=== PATIENT | female | born 1970 | race Hispanic/Latino ===

== ENCOUNTER 2019-09-06 10:26 | Inpatient (IN) | payer BC ==
[~2019-09-06] VITALS: Ht 160 cm; Wt 72.0 kg
[~2019-09-06 10:26] MED LIST: AUGMENTIN875TAB PO; BACTRIM DS1 TAB OR; CIPRO XR500 MG PO; DENIES CURRENT MEDS; FLAGYL500 MG PO; HYDROCO/APAP1 TA9 PO; LORTAB 7.57.5 MG PO; LORTAB5 OR; LORTAB5 PO; NAPROSYN500 MG PO; NEXIUM40 M1 PO; NO HOME MEDS; STOMACH MEDICATION; TORADOL OR; TYLOPHEN500 MG PO; VENLAFAXINE HCL75 MG PO; [UNRECOGNIZED DRUG - SUPPLY] XX
--- NOTE | 2019-09-06 10:46 | NUR ---
To room 16 via wc in stable condition.
--- NOTE | 2019-09-06 11:40 | NUR ---
PT RESTING ON STRETCHER; PT ADVISED OF BUSY ED AND CONTINUED WAIT TIME; VSS; CALL LIGHT WITHIN REACH; WILL CONTINUE TO MONITOR
[2019-09-06 11:55] LABS: HEMATOCRIT 43.8 % (37.0-47.0); HEMOGLOBIN 15.4 g/dl (12.0-16.0); IMMATURE GRANULOCYTES 0.4 % (0.0-5.0); MEAN CELL VOLUME 88.3 fL CALC (80.0-100.0); MEAN CORPUSCULAR HGB CONC 35.2 g/dL CAL (32.0-36.0); NEUT# 4.34 thou/uL (2.00-7.15); RED BLOOD COUNT 4.96 mill/uL (4.20-5.60); RED CELL DISTRI WIDTH 11.8 % (11.5-15.5)
[2019-09-06 12:04] LABS: ALBUMIN 4.5 g/dL (3.2-5.0); ALKALINE PHOSPHATASE 86 u/l (38-126); BILIRUBIN, TOTAL 0.5 mg/dL (0.0-1.4); BUN 10 mg/dL (7-17); BUN/CREATININE RATIO 30 (12-20 (CALC)); CARBON DIOXIDE 27 mmol/l (22-30); CHLORIDE 92 mmol/l (95-108); CREATININE 0.3 mg/dL (0.5-1.0); GFR > 60 ML/MIN (>=60 (CALC)); GFR FOR AFR.AMER. > 60 ML/MIN (>=60 (CALC)); POTASSIUM 3.6 mmol/l (3.5-5.1)
[2019-09-06 12:12] LABS: AMYLASE 34 u/l (30-110); LIPASE 66 u/l (23-300)
[2019-09-06 12:19] LABS: ANION GAP 17 (6-22 (CALC)); SGOT/AST 70 u/l (14-36); SODIUM 132 mmol/l (137-146)
[2019-09-06 12:26] LABS: MYOGLOBIN 18 ng/mL (0 - 62)
--- NOTE | 2019-09-06 12:40 | NUR ---
PT RESTING ON STRETCHER; PT C/O NAUSEA; WILL MEDICATE WHEN AVAILABLE; MONITORING DEVICES IN PLACE; VSS; WILL CONTINUE TO MONITOR
[2019-09-06 13:08] LABS: ACT PARTIAL THROMBO TIME 28.7 SECONDS (20.0-32.5); D-DIMER 0.17 mg/L (0.19-0.60); PROTHROMBIN TIME 10.3 SECONDS (9.0-12.5)
--- NOTE | 2019-09-06 13:33 | NUR ---
PT AMB TO BR WITH STEADY GAIT FOR UA
[2019-09-06 14:26] LABS: URINE BILIRUBIN - DIPSTICK NEGATIVE (NEGATIVE); URINE BLOOD DIPSTICK TRACE-INTACT (NEGATIVE); URINE COLOR YELLOW; URINE GLUCOSE - DIPSTICK 500 mg/dL (NEGATIVE); URINE KETONE >=80 mg/dL (NEGATIVE); URINE LEUK ESTERASE NEGATIVE (NEGATIVE); URINE NITRITE - DIPSTICK NEGATIVE (Negative); URINE PH 6.5 (4.5-8.0); URINE PROTEIN - DIPSTICK 100 mg/dL (NEG-TRACE); URINE UROBILINOGEN - DIPSTICK 0.2 E.U./dL (0.2)
--- NOTE | 2019-09-06 14:33 | NUR ---
PT IS FEELING MUCH BETTER AFTER MEDICATION. AND IS RESTING COMFORTABLY
[2019-09-06 14:37] LABS: URINE EPITHELIAL CELLS FEW EPI/hpf (0-FEW); URINE MUCUS FEW hpf (NONE-FEW)
[2019-09-06 15:45] VITALS: BP 138/83
--- NOTE | 2019-09-06 15:46 | NUR ---
PT IS AWARE OF BEING ADMITTED AND IS WAITING FOR A BED. PT IS IN NO DITRESS
--- NOTE | 2019-09-06 16:30 | NUR ---
Admission Note Report Given to: MALINDA Transported by: Wheelchair X Stretcher Transported with: X Nurse Transporter X Patent IV O2 X Photographer Finish Location: ICU X MS2
--- NOTE | 2019-09-06 16:30 | NUR ---
PT ARRIVED TO [facility] ROOM 289 IN STABLE CONDITION VIA WHEELCHAIR ACCOMPAINED BY MICKEY CRAWFORD. PT AMBULATED FROM WHEEL CHAIR TO BED WITH STEADY GAIT. PT IS A/O X3 AND ESTONIAN SPEAKING.ASSESSMENT AND VITALS COMPLETED AT THIS TIME. BP 138/83, HR 106, O2 96% ON ROOM AIR. RESPIRATIONS ARE EVEN AND UNLABORED. LUNG SOUNDS ARE DIMINISHED . HEART RHYTHM IS NORMAL, TELE IN PLACE. BOWEL SOUNDS ARE HYPOACTIVE WITH TENDERNESS. RADIAL AND PEDAL PULSES ARE STRONG WITH NORMAL CAPILLARY REFILL. NO EDEMA PRESENT AT THIS TIME. SKIN IS WARM AND DRY WITH NO SKIN BREAKS. IV FLUSHED, SITE APPEARS HEALTHY AND PATENT. IV FLUIDS STARTED AT THIS TIME, RUNNING AT 100ML ORDERED. PT COMPLAINS OF SLIGHT BACK PAIN, REPOSITIONED FOR COMFORT. MICKEY SOSA TO TRANSLATE.FALL RISK BRACLET APPLIED. ALL SAFTEY PRECAUTIONS IN PLACE, ORIENTED PT TO ROOM AND CALL LIGHT SYSTEM . WILL CONTINUE TO MONITOR
--- NOTE | 2019-09-06 19:00 | NUR ---
RECEIVED REPORT FROM NURSE PETTY PATIENT APPEARS TO BE SLEEPING WITH EYES CLOSED, BREATHING EVEN AND UNLABORED CALL LIGHT AT REACH.
[2019-09-06 19:30] VITALS: BP 101/63
--- NOTE | 2019-09-06 20:30 | NUR ---
PATIENT PARAG VARELA, ABL TO MAKE NEEDS KNONW, SINHALA SPEAKING BUT ABLE TO UNDERSTAND LITTLE BULGARIAN, REMAINS ON TELE, DENIES PAIN OR DISCOMFORTS, DENIES N/V, BREATHING SHALLOW, UNLABORED, LUNG SOUNDS DIMINISHED, CALL LIGHT AT REACH.
[2019-09-07] VITALS (7 sets, daily range): BP systolic 109–168; BP diastolic 58–83
--- NOTE | 2019-09-07 00:41 | NUR ---
TEMP 101.5 PRN TYLENOL GIVEN AND COLD PACKS PROVIDED WILL RECHECK TEMP
--- NOTE | 2019-09-07 04:26 | NUR ---
PATIENT RESTING IN BED WITH EYES CLOSED, EASY TO AROUSED, DENIES PAIN OR DISCOMFORTS, AFEBRILE AT THIS TIME, NO DISCOMFORTS NOTED, NOT IN DISTRESS CALL LIGHT AT REACH.
[2019-09-07 04:30] LABS: CHOLESTEROL HDL RATIO 3.7 (<4.4 (CALC)); MAGNESIUM 1.7 mg/dL (1.6-2.3)
--- NOTE | 2019-09-07 09:30 | NUR ---
RECIEVED REPORT FROM MICKEY MEDINA. PT RESTING IN SEMI FOLWERS POSITION UPON ENTERING ROOM. ASSESSMENT AND VITALS COMPLETED AT THIS TIME. PT IS A/O X3 AND AMBULATORY. PT IS MOSTLY SUDANESE SPEAKING, MICKEY PALENCIA ASSISTED WITH TRANSLATION OVER PHONE. BP 144/79, HR 107, O2 91% ON ROOM AIR. RESPIRATIONS ARE EVEN AND UNLABORED WITH NO SIGNS OF DISTRESS. LUNG SOUNDS ARE DIMINISHED. PT PRESENTS WITH NON PRODUCTIVE COUGH. HEART RHYTHM IS NORMAL WITH TELE IN PLACE. BOWEL SOUNDS ARE ACTIVE IN ALL QUADRANTS, LAST REPORTED BM 09/05/19. RADIAL AND PEDAL PULSES ARE STRONG WITH NORMAL CAPILLARY REFILL. PT TEMPERATURE WAS 100.8, TYLENOL TO BE ADMINISTERED WITH MORNING MEDICTAIONS PT DENIES ANY PAIN OR DISCOMFORTS AT THIS TIME. ALL SAFTEY PRECAUTIONS IN PLACE WITH CALL LIGHT IN REACH. WILL CONTINUE TO MONTIOR.
--- NOTE | 2019-09-07 09:52 | NUR ---
PT PRESENTS WITH A FEVER OF 101.5, TYLENOL ADMINISTERED AT THIS TIME. ALL SAFTEY PERCAUTIONS IN PLACE WITH CALL LIGHT IN REACH. WILL CONTINUE TO MONITOR
--- NOTE | 2019-09-07 12:00 | NUR ---
PT RESTING IN SEMI FOWLERS POSITION WATCHING TV. BREATHING IS EVEN AND UNLABORED. PT ASKED FOR CHARGERE FOR HER PHONE, OgorodITTER INFORMED PT THAT WE DID NOT HAVE A GEMOLOGIST AVALIABLE. PT VERBALIZED UNDERSTANDING. PT DENIES ANY PAIN OR DISCOMFORTS AT THIS TIME. ALL SAFETY PRECAUTIONS IN PLACE WITH CALL LIGHT IN REACH. WILL CONTINUE TO MONITOR
--- NOTE | 2019-09-07 14:30 | NUR ---
PT TRANSPORTED TO [facility] IN STABLE CONDITION VIA WHEELCHAIR ACCOMPANIED BY EDWARD DESHPANDE.
--- NOTE | 2019-09-07 15:00 | NUR ---
PT ARRIVED BACK TO [facility] FLOOR VIA WHEEL CHAIR IN STABLE CONDITION. RESPIRATIONS ARE EVEN AND UNLABORED WITH NO SIGNS OF DISTRESS. ALL SAFTEY PRECAUTIONS IN PLACE WITH CALL LIGHT IN REACH.WILL CONTINUE TO MONITOR
--- NOTE | 2019-09-07 15:51 | NUR ---
REPORTED TEMP OF 102.1, TYLENOL TO BE ADMINISTERED TO ASSIST. RESPIRATIONS ARE EVEN AND UNLABORED. PT DENIES ANY PAIN OR DISCOMFORTS AT THIS TIME.ALL SAFTEY PRECAUTIONS IN PLACE WITH CALL LIGHT IN REACH. WILL CONTINUE TO MONITOR
--- NOTE | 2019-09-07 15:55 | NUR ---
REPORTED TEMP 102.5. TYLENOL GIVEN AT THIS TIME. RESPIRATIONS ARE EVEN AND UNLABORED. PT DENIES ANY PAIN OR DISCOMFORTS. ALL SAFTEY PRECAUTIONS IN PLACE WITH CALL LIGHT IN REACH. WILL CONTINUE TO MONITOR.
--- NOTE | 2019-09-07 21:35 | NUR ---
UPON ENTERING ROOM PT COMING OUT OF BATHROOM, AMBULATORY TO BED W/ IV PUMP, GAIT STEADY AND BALANCED. PHYSICAL ASSESMENT COMPLETE. PLAN OF CARE REVIEWED. PT DENIES QUESTIONS AND VERBALIZES UNDERSTANDING. PT PROVIDED W/ AYDINO PER HER REQUEST. PT DENIES FURTHER NEEDS @ THIS TIME. ITEMS WITHIN REACH. CALL TIM WITHIN REACH, AGREES TO CALL PRN. BED LOCKED IN LOW POSITION W/ BEDRAILS UPX2.
--- NOTE | 2019-09-08 01:30 | NUR ---
PT APPEARS TO BE SLEEPING COMFORTABLY, NO APPARENT DISTRESS, RESPIRATIONS REGULAR AND UNLABORED, ITEMS REMAIN WITHIN REACH, CALL TIM REMAINS WITIHN REACH, BED REMAINS LOCKED IN LOW POSITION W/ BEDRAILS UP X2.
--- NOTE | 2019-09-08 03:58 | NUR ---
COVID-19 SWAB RESULTS RECEIVED. RESULTS ARE POSITIVE. DR JONES AND NURSING FORM BUILDER HELPER MADE AWARE.
[2019-09-08 04:12] VITALS: BP 139/73
--- NOTE | 2019-09-08 05:30 | NUR ---
AM LABS DRAWN, PT C/O NAUSEA, PROVIDED GINGERALE AND SALTINES PER HER REQUEST. PT ADVISED OF POSITIVE COVID-19 RESULTS. PT VERBALIZES UNDERSTANDING AND DENIES QUESTIONS. ENCOURAGED PT TO AND ALLOWED PT TIME TO EXPRESS ANY CONCERNS.
[2019-09-08 06:13] LABS: HEMATOCRIT 42.8 % (37.0-47.0); HEMOGLOBIN 14.9 g/dl (12.0-16.0); IMMATURE GRANULOCYTES 0.3 % (0.0-5.0); MEAN CELL VOLUME 87.9 fL CALC (80.0-100.0); MEAN CORPUSCULAR HGB 30.6 pG CALC (26.0-32.0); MEAN CORPUSCULAR HGB CONC 34.8 g/dL CAL (32.0-36.0); NEUT# 1.87 thou/uL (2.00-7.15); RED BLOOD COUNT 4.87 mill/uL (4.20-5.60); RED CELL DISTRI WIDTH 11.7 % (11.5-15.5)
[2019-09-08 06:30] LABS: ALBUMIN 3.6 g/dL (3.2-5.0); ALKALINE PHOSPHATASE 76 u/l (38-126); ANION GAP 13 (6-22 (CALC)); BILIRUBIN, TOTAL 0.4 mg/dL (0.0-1.4); BUN 5 mg/dL (7-17); BUN/CREATININE RATIO 16 (12-20 (CALC)); CARBON DIOXIDE 25 mmol/l (22-30); CHLORIDE 98 mmol/l (95-108); CREATININE 0.3 mg/dL (0.5-1.0); GFR > 60 ML/MIN (>=60 (CALC)); GFR FOR AFR.AMER. > 60 ML/MIN (>=60 (CALC)); POTASSIUM 2.9 mmol/l (3.5-5.1); SGOT/AST 75 u/l (14-36); SODIUM 132 mmol/l (137-146); TOTAL PROTEIN 6.7 g/dL (6.3-8.2)
[2019-09-08 06:35] LABS: C-REACTIVE PROTEIN > 9.0 mg/dL (0-0.9)
--- NOTE | 2019-09-08 07:11 | NUR ---
K LEVEL OF 2.9. DR JONES NOTIDED
--- NOTE | 2019-09-08 07:14 | NUR ---
K REPLACEMENT ORDERS REC. ORDERS FAXED TO PHARMACY
--- NOTE | 2019-09-08 07:33 | NUR ---
PT SITTING IN BED. A&O X3. NO DISTRESS NOTED. PT DENIES ANY SOB OR EXCERTIONAL SOB. NO OTHER NEEDS AT THIS TIME. EXPLAINED TO PT THAT K LEVEL WAS BELOW THE NORMAL RANGE AND THAT REPLACEMENT WOULD BE NEEDED. PT VERBALIZED UNDERSTANDING. ASSESSMENT COMPLETED. DISCUSSED POC. CALL LIGHT IN REACH. CONTINUE TO MONITOR. ISOLATION PRECAUTIONS IN PLACE.
[2019-09-08 07:57] VITALS: BP 111/60
[2019-09-08 11:59] VITALS: BP 116/67
--- NOTE | 2019-09-08 15:18 | NUR ---
TEMP 101.1. TYLENOL GIVEN, BLANKETS REMOVED, COOL WASH CLOTHS GIVEN. WILL REASSESS
[2019-09-08 16:02] VITALS: BP 152/82
[2019-09-08 19:55] VITALS: BP 149/81
--- NOTE | 2019-09-08 21:25 | NUR ---
UPON ENTERING ROOM PT FOUND TO BE SITTING UP AT BEDSIDE. RESPIRATIONS REGULAR AND UNLABORED, PT APPEARS COMFORTABLE AND IN NO DISTRESS. PHYSICAL ASSESMENT COMPLETE. NEW IV STARTED TO RFA. PLAN OF CARE REVIEWED, PT VERBALIZES UNDERSTANDING AND DENIES QUESTIONS. PT PROVIDED W/ HS DIABETIC SNACK, SCHEDULED MEDS ADMINISTERED, SEE MAR. PRN TYLENOL ADMINISTERED FOR FEVER. SEE MAR. PT DENIES FURTHER NEEDS @ THIS TIME. ITEMS WITHIN REACH. BED LOCKED IN LOW POSITION W/ BED RAILS UP X2. CALL TIM WITHIN REACH, AGREES TO CALL PRN.
[2019-09-09] VITALS (7 sets, daily range): BP systolic 112–155; BP diastolic 66–89
--- NOTE | 2019-09-09 01:32 | NUR ---
PT RESTING IN BED, APPEARS TO BE SLEEPING, APPEARS COMFORTABLE AND IN NO DISTRESS, RESPIRATIONS REGULAR AND UNLABORED. CALL TIM REMAINS WITHIN REACH, BED REMAINS LOCKED IN LOW POSITION W/ BEDRAILS UPX2.
--- NOTE | 2019-09-09 05:31 | NUR ---
MEDICATED W/ APAP 650MG FOR FEVER OF 101. SEE MAR. PT DENIES FURTHER NEEDS @ THIS TIME. CALL TIM REMAINS WITHIN REACH, AGREES TO CALL PRN.
--- NOTE | 2019-09-09 07:03 | NUR ---
PT SITTING ON THE SIDE OF THE BED. A&O X3. NO DISTRESS NOTED. PT REPORTS TO BE FEELING BETTER THIS MORNING. DENIES SOB, CURRENTLY AFEBRILE AT THIS TIME. ASSESSMENT COMPLETED. ISOLATION PRECAUTIONS IN PLACE. ASSESSMENT COMPLETED. DISCUSSED POC. CALL LIGHT IN REACH. CONTINUE TO MONITOR.
[2019-09-09 07:47] LABS: ALBUMIN 3.3 g/dL (3.2-5.0); ALKALINE PHOSPHATASE 70 u/l (38-126); ANION GAP 12 (6-22 (CALC)); BILIRUBIN, TOTAL 0.4 mg/dL (0.0-1.4); BUN 5 mg/dL (7-17); BUN/CREATININE RATIO 16 (12-20 (CALC)); CARBON DIOXIDE 23 mmol/l (22-30); CHLORIDE 100 mmol/l (95-108); CREATININE 0.3 mg/dL (0.5-1.0); GFR > 60 ML/MIN (>=60 (CALC)); GFR FOR AFR.AMER. > 60 ML/MIN (>=60 (CALC)); MAGNESIUM 1.7 mg/dL (1.6-2.3); POTASSIUM 2.8 mmol/l (3.5-5.1); SGOT/AST 69 u/l (14-36); SODIUM 132 mmol/l (137-146); TOTAL PROTEIN 6.3 g/dL (6.3-8.2)
--- NOTE | 2019-09-09 11:33 | NUR ---
PER ALFONSO VASQUEZ AND ARE NOT COMPATIBLE.
--- NOTE | 2019-09-09 13:12 | NUR ---
PER PEDRO IN PHARMACY, GIVE ZITHRO NOW. ROCEPHIN DUE TIME TO BE ADJUSTED
--- NOTE | 2019-09-09 16:57 | NUR ---
PT SITTING IN CHAIR. NO DISTRESS OR NEEDS AT THIS TIME. CALL LIGHT IN REACH. CONTINUE TO MONITOR.
--- NOTE | 2019-09-09 21:30 | NUR ---
UPON ENTERING ROOM PT FOUND TO BE SITTING UP IN CHAIR. RESPIRATIONS REGULAR AND UNLABORED, PT APPEARS COMFORTABLE AND IN NO DISTRESS. PHYSICAL ASSESMENT COMPLETE. PLAN OF CARE REVIEWED, PT VERBALIZES UNDERSTANDING AND DENIES QUESTIONS. PT PROVIDED W/ HS DIABETIC SNACK, SCHEDULED MEDS ADMINISTERED, SEE MAR. PRN TYLENOL ADMINISTERED FOR FEVER. SEE MAR. PT DENIES FURTHER NEEDS @ THIS TIME. ITEMS WITHIN REACH. BED LOCKED IN LOW POSITION W/ BED RAILS UP X2. CALL TIM WITHIN REACH, AGREES TO CALL PRN.
--- NOTE | 2019-09-10 02:08 | NUR ---
PT RESTING IN BED, APPEARS TO BE SLEEPING, APPEARS COMFORTABLE AND IN NO DISTRESS, RESPIRATIONS REGULAR AND UNLABORED. ITEMS REMAIN WITHIN REACH, CALL TIM REMAINS WITHIN REACH, BED REMAINS LOCKED IN LOW POSITION W/ BEDRAILS UPX2.
[2019-09-10 04:10] VITALS: BP 124/77
--- NOTE | 2019-09-10 05:40 | NUR ---
AM LABS DRAWN.
[2019-09-10 06:16] LABS: HEMATOCRIT 42.7 % (37.0-47.0); HEMOGLOBIN 14.6 g/dl (12.0-16.0); IMMATURE GRANULOCYTES 0.3 % (0.0-5.0); MEAN CELL VOLUME 88.6 fL CALC (80.0-100.0); MEAN CORPUSCULAR HGB 30.3 pG CALC (26.0-32.0); MEAN CORPUSCULAR HGB CONC 34.2 g/dL CAL (32.0-36.0); NEUT# 4.27 thou/uL (2.00-7.15); RED BLOOD COUNT 4.82 mill/uL (4.20-5.60); RED CELL DISTRI WIDTH 11.8 % (11.5-15.5)
[2019-09-10 06:40] LABS: ALBUMIN 3.5 g/dL (3.2-5.0); ALKALINE PHOSPHATASE 73 u/l (38-126); BILIRUBIN, TOTAL 0.4 mg/dL (0.0-1.4); BUN 8 mg/dL (7-17); BUN/CREATININE RATIO 21 (12-20 (CALC)); CARBON DIOXIDE 25 mmol/l (22-30); CHLORIDE 102 mmol/l (95-108); CREATININE 0.4 mg/dL (0.5-1.0); GFR > 60 ML/MIN (>=60 (CALC)); GFR FOR AFR.AMER. > 60 ML/MIN (>=60 (CALC)); MAGNESIUM 1.9 mg/dL (1.6-2.3); SGOT/AST 59 u/l (14-36); SODIUM 136 mmol/l (137-146); TOTAL PROTEIN 6.7 g/dL (6.3-8.2)
[2019-09-10 06:42] LABS: ANION GAP 13 (6-22 (CALC))
[2019-09-10 06:52] LABS: C-REACTIVE PROTEIN 13.2 mg/dL (0-0.9)
[2019-09-10 07:59] VITALS: BP 128/65
--- NOTE | 2019-09-10 08:05 | NUR ---
PT SITTING IN BED. A&O X3. NO DISTRESS NOTED. REPORTS TO BE FEELING WEAK AND FEELS LIKE SHE HAS A FEVER. BLANKETS REMOVED, FAN TURNED ON AND COLD WASH CLOTHS PLACED ON FOREHEAD. TYLENOL GIVEN FOR TEMP. WILL REASSESS. NO OTHER NEEDS AT THIS TIME. ASSESSMENT COMPLETED. ISOLATION PRECAUTIONS IN PLACE. CALL LIGHT IN REACH. CONTINUE TO MONITOR
[2019-09-10 11:00] VITALS: BP 105/66
--- NOTE | 2019-09-10 14:12 | NUR ---
PT SITTING IN CHAIR. REPORTS TO BE FEELING BETTER NOW. CALL LIGHT IN REACH. CONTINUE TO MONITOR.
[2019-09-10 16:06] VITALS: BP 117/65
[2019-09-10 19:30] VITALS: BP 118/61
--- NOTE | 2019-09-10 20:38 | NUR ---
ASSESSMENT COMPLETED. IV SITE PATENT AND SMALL BOARD APPLIED UNDERNEATH IT TO HOLD IV INTACT. DENIES NEEDS/PAIN AT THIS TIME. FRESH WATER PROVIDED. PT. AMBULATED TO AND FROM THE BATHROOM; TYLENOL GIVEN AT THIS TIME FOR TEMP OF 99.0; WILL CONTINUE TO MONITOR. CALL LIGHT IS IN REACH, WILL CONTINUE TO MONITOR.
--- NOTE | 2019-09-10 22:32 | NUR ---
TEMP BACK UP TO 100, COOL WASHCLOTH APPLIED TO FOREHEAD; WILL CONTINUE TO MONITOR.
[2019-09-10 23:34] VITALS: BP 107/57
--- NOTE | 2019-09-11 00:32 | NUR ---
RESTING IN BED WITH EYES CLOSED; NO DISTRESS NOTED; CALL LIGHT IS IN REACH.
[2019-09-11 03:55] VITALS: BP 133/73
--- NOTE | 2019-09-11 03:55 | NUR ---
VSS. NO DISTRESS NOTED; DENIES NEEDS/PAIN. AM LABS DRAWN. ENCOURAGED TO CALL FOR ANY NEEDS. CALL LIGHT IS IN REACH.
[2019-09-11 05:10] LABS: ALBUMIN 3.3 g/dL (3.2-5.0); ALKALINE PHOSPHATASE 68 u/l (38-126); ANION GAP 12 (6-22 (CALC)); BILIRUBIN, TOTAL 0.5 mg/dL (0.0-1.4); BUN 8 mg/dL (7-17); BUN/CREATININE RATIO 31 (12-20 (CALC)); CARBON DIOXIDE 22 mmol/l (22-30); CHLORIDE 104 mmol/l (95-108); CREATININE 0.3 mg/dL (0.5-1.0); GFR > 60 ML/MIN (>=60 (CALC)); GFR FOR AFR.AMER. > 60 ML/MIN (>=60 (CALC)); POTASSIUM 3.6 mmol/l (3.5-5.1); SGOT/AST 48 u/l (14-36); SODIUM 134 mmol/l (137-146); TOTAL PROTEIN 6.3 g/dL (6.3-8.2)
[2019-09-11 08:00] VITALS: BP 123/71
--- NOTE | 2019-09-11 09:00 | NUR ---
PT AWAKE, ALERT, ORIENTED X 3, AMBULATORY IN ROOM. PT DENIES NAUSEA OR VOMITING. NS 100 TO L THUMB IV SITE.
[2019-09-11 11:28] VITALS: BP 101/61
--- NOTE | 2019-09-11 13:00 | NUR ---
PT SEEN BY DR JONES, WILL MONITOR PROGRESS FOR ANOTHER DAY. PT REMAINS AFEBRILE, NO N/V.
[2019-09-11 15:26] VITALS: BP 116/62
--- NOTE | 2019-09-11 16:52 | NUR ---
PT REMAINS AT REST IN THE BED WITHOUT CHANGE IN STATUS.
[2019-09-11 19:30] VITALS: BP 112/60
--- NOTE | 2019-09-11 19:35 | NUR ---
ASSESSMENT COMPLETED. NO DISTRESS NOTED; DENIES NEEDS/PAIN. ENCOURAGED TO CALL FOR ANY NEEDS. FRESH WATER PROVIDED AND TOILET PAPER. ENCOURAGED TO CALL FOR ANY NEEDS. CALL LIGHT IS IN REACH. WILL CONTINUE TO MONITOR.
--- NOTE | 2019-09-11 21:10 | NUR ---
PT. REPORTS NO BM SINCE 09/08 AND MEDICATED WITH ORDERED PRN MOM.
[2019-09-11 23:18] VITALS: BP 140/79
--- NOTE | 2019-09-11 23:18 | NUR ---
VS OBTAINED AND FRESH WATER AND COFFEE PROVIDED. REPORTS HAVING A BM POST MOM; DENIES FURTHER NEEDS. CALL LIGHT IS IN REACH.
[2019-09-12 03:39] VITALS: BP 132/75
--- NOTE | 2019-09-12 03:39 | NUR ---
PT. RESTING IN BED WITH NO DISTRESS NOTED; DENIES NEEDS/PAIN. VOICES NO CONCERNS. VSS. AM LABS OBTAINED. CALL LIGHT IS IN REACH.
[2019-09-12 04:24] LABS: HEMATOCRIT 40.3 % (37.0-47.0); HEMOGLOBIN 14.1 g/dl (12.0-16.0); MEAN CELL VOLUME 86.9 fL CALC (80.0-100.0); MEAN CORPUSCULAR HGB 30.4 pG CALC (26.0-32.0); RED BLOOD COUNT 4.64 mill/uL (4.20-5.60); RED CELL DISTRI WIDTH 11.8 % (11.5-15.5)
[2019-09-12 04:42] LABS: ALKALINE PHOSPHATASE 74 u/l (38-126); ANION GAP 12 (6-22 (CALC)); BILIRUBIN, TOTAL 0.4 mg/dL (0.0-1.4); BUN 10 mg/dL (7-17); BUN/CREATININE RATIO 35 (12-20 (CALC)); C-REACTIVE PROTEIN 6.1 mg/dL (0-0.9); CARBON DIOXIDE 22 mmol/l (22-30); CHLORIDE 103 mmol/l (95-108); CREATININE 0.3 mg/dL (0.5-1.0); GFR > 60 ML/MIN (>=60 (CALC)); GFR FOR AFR.AMER. > 60 ML/MIN (>=60 (CALC)); POTASSIUM 3.3 mmol/l (3.5-5.1); SGOT/AST 43 u/l (14-36); SODIUM 134 mmol/l (137-146)
[2019-09-12 08:00] VITALS: BP 131/70
--- NOTE | 2019-09-12 09:00 | NUR ---
PT SEEN AWAKE, ALERT, ORIENTED X 3. LUNGS CLEAR, DIMINISHED IN THE BASES, RA. PT AMBULATORY IN ROOM, NO COMPLAINTS HEARD.
[2019-09-12 12:05] VITALS: BP 112/67
--- NOTE | 2019-09-12 13:00 | NUR ---
PT HAS SHOWERED THIS MORNING, SEEN RESTING IN THE BED AFTERWARD IN STABLE CONDITION, NO DISTRESS, NO COMPLAINTS.
[2019-09-12 16:01] VITALS: BP 131/79
--- NOTE | 2019-09-12 17:55 | NUR ---
NO CHANGE IN STATUS PT REMAINS AT REST IN THE BED.
[2019-09-12 19:40] VITALS: BP 118/68
--- NOTE | 2019-09-12 19:40 | NUR ---
ASSESSMENT COMPLETED. VS OBTAINED. SPO2 89% AND WITH DEEP BREATHING TECHNIQUES ABLE TO GET IT UP TO 91% ON RA. WILL CONTINUE TO MONITOR. DENIES PAIN AND REPORTS FEELING GOOD RIGHT NOW. FRESH WATER PROVIDED WELL TOILET PAPER; DENIES FURTHER NEEDS. ENCOURAGED TO CALL FOR ANY NEEDS. CALL LIGHT IS IN REACH.
--- NOTE | 2019-09-12 21:00 | NUR ---
SCHED MEDS GIVEN. COFFEE PROVIDED PER REQUEST; DENIES FURTHER NEEDS. CALL LIGHT IS IN REACH.
[2019-09-12 23:32] VITALS: BP 147/74
--- NOTE | 2019-09-12 23:32 | NUR ---
VSS. NO DISTRESS NOTED. SNACK PROVIDED. ENCOURAGED TO CALL FOR ANY NEEDS. CALL LIGHT IS IN REACH.
[2019-09-13 03:45] VITALS: BP 134/70
--- NOTE | 2019-09-13 03:45 | NUR ---
VSS. NO DISTRESS NOTED; DENIES NEEDS. CALL LIGHT IS IN REACH. IV SITE PATENT AND INFUSING ORDERED IVF WELL. CALL LIGHT IS IN REACH.
--- NOTE | 2019-09-13 07:20 | NUR ---
REPORT RECEIVED FROM MICKEY SOTO. PT SITTING UP IN BED EATING BREAKFAST; ALERT AND ORIENTED. DENIES PAIN. RESPIRATIONS EVEN AND UNLABORED ON ROOM AIR. REMAINS ON AIRBORNE/CONTACT PRECAUTIONS FOR POSITIVE COVID RESULTS. IV FLUIDS INFUSING WITHOUT DIFFICULTY; IV SITE APPEARS HEALTHY. TELE ON. ACCU CHECK 178. PLAN OF CARE REVIEWED. PT ENCOURAGED TO VERBALIZE CONCERNS. STATES UNDERSTANDING. SAFETY MEASURES IN PLACE. CALL LIGHT WITHIN REACH.
[2019-09-13 08:00] VITALS: BP 115/69
--- NOTE | 2019-09-13 10:44 | NUR ---
PT ASSISTED WITH SHOWER; IV FLUIDS RECONNECTED. NO REQUESTS OR CONCERNS AT THIS TIME.
[2019-09-13 11:00] VITALS: BP 125/74
[2019-09-13] MEDS ORDERED: METFORMIN500 M2 PO (12:17)
[2019-09-13] MEDS ORDERED: JANUVIA100 MG PO (12:18)
--- NOTE | 2019-09-13 12:33 | NUR ---
ACCU CHECK 428; STAT GLUCOSE 449. NEW ORDERS FOR ADDITIONAL 6 UNITS OF INSULIN FOR A TOTAL OF 12 UNITS. WALK TEST ALSO ORDERED PRIOR TO DISCHARGE.
--- NOTE | 2019-09-13 13:00 | NUR ---
WALK TEST COMPLETED. ON ROOM AIR AT REST SPO2 IS 100%; DURING AMBULATION SPO2 DECREASED TO 87%; DURING REST AFTER WALK SPO2 INCREASED BACK UP TO 91%. EXERTIONAL SOB, BUT PT SMILES AND SAYS, "I'M OK." NO DISTRESS. ZITHROMAX INFUSING AT THIS TIME.
--- NOTE | 2019-09-13 16:23 | NUR ---
DR. LOBO AT BEDSIDE FOR EVAL. CHACON ON THE PHONE WITH CASE MANAGEMENT CONCERNING AT HOME OXYGEN.
[2019-09-13 16:37] VITALS: BP 131/75
--- NOTE | 2019-09-13 16:55 | NUR ---
OXYGEN APPLIED AT 2L; RESTING SPO2 95%. 91% ON ROOM AIR. WALK TEST PERFORED AGAIN AND PT AMBULATED WITH AND WITHOUT OXYGEN. AGAIN SPO2 DECREASED TO 87% WHILE AMBULATING ON ROOM AIR. EXERTION SOB NOTED.
--- NOTE | 2019-09-13 17:39 | NUR ---
PT UPDATED THAT SHE WILL BE HERE ANOTHER NIGHT DUE TO INABILITY TO GET HER OXYGEN UNTIL TOMORROW. PT STATES UNDERSTANDING AND THANKS STAFF FOR HER CARE. RESTING ON OXYGEN 2L VIA NC.
--- NOTE | 2019-09-13 18:00 | NUR ---
INES ARRIVED WITH OXYGEN. PT UPDATED THAT HER OXYGEN DID COME AND SHE IS ABLE TO BE DISCHARGED WITH OXYGEN IN PLACE. D/C INSTRUCTIONS GIVEN IN [facility] AND PT EXPLAINED OXYGEN USE AND SELF ACCU CHECKD AND NEW DIABETIC MEDS. GIVEN INFORMATION FOR LOCAL [facility] SPEAKING PCP'S.
--- NOTE | 2019-09-13 18:40 | NUR ---
IV site discontinued, cath intact. No edema , no redness, voices no discomfort.
--- NOTE | 2019-09-13 19:17 | NUR ---
Discharge instructions given. Patient verbalizes understanding of same. Discharged in stable condition via Wheelchair to Home with spouse. All belongings sent with pt.
== END 2019-09-13 19:16 | disposition home or self-care (01) | DRG 177 ==
LOC: ED 10:26 → ED-I 14:40 → ED 14:56 → MS2 14:57 → ED-I 14:57 → MS2 15:53
PROVIDERS: Emergency Medicine; Nurse Practitioner Family; ADMIT Internal Medicine; ATTEND Internal Medicine
DX: U07.1 COVID-19 (principal); J12.89 Other viral pneumonia; E11.65 Type 2 diabetes mellitus with hyperglycemia; E87.6 Hypokalemia; E83.42 Hypomagnesemia; R09.02 Hypoxemia
CPT/HCPCS: J1650; J3475; Q9967

== ENCOUNTER 2021-11-08 08:32 | Day surgery (SDC) | payer BC ==
[~2021-11-08] VITALS: Ht 167.6 cm; Wt 74.8 kg
[~2021-11-08 08:32] MED LIST changes: +JANUVIA100 MG PO; +JARDIANCE25 MG; +METFORMIN500 M2 PO; +TYLENOL325 M2 PO
[2021-11-08 10:24] VITALS: BP 125/77
== END 2021-11-08 10:41 | disposition home or self-care (01) | DRG 951 ==
LOC: ENDO 08:32
PROVIDERS: ATTEND Surgery
PROC: 0DJD8ZZ Inspection of Lower Intestinal Tract, Via Natural or Artificial Opening Endoscopic (ICD-10-PCS; principal; 2021-11-08)
DX: Z12.11 Encounter for screening for malignant neoplasm of colon (principal); E11.9 Type 2 diabetes mellitus without complications; Z79.84 Long term (current) use of oral hypoglycemic drugs